=== PATIENT | female | born 1965 | race Caucasian/White ===

== ENCOUNTER 2019-05-06 02:19 | Emergency (ER) | payer OTHER ==
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
[2019-05-06 05:08] VITALS: BP 134/84; TEMP 98.8; O2SAT 99
== END 2019-05-06 03:20 | disposition home or self-care (01) ==
LOC: ER 02:19
DX: S80.02XA Contusion of left knee, initial encounter (principal); V49.9XXA Car occupant (driver) (passenger) injured in unspecified traffic accident, initial encounter; I10 Essential (primary) hypertension; Z72.0 Tobacco use
CPT/HCPCS: 99283

== ENCOUNTER 2021-01-21 15:42 | Emergency (ER) | payer OTHER, SELFPAY ==
--- OUTSIDE RECORDS SUMMARY | 2021-01-21 15:44 | XMS REPORT | Continuity of Care Document ---
:1965 Author Organization [facility] t Address [address] [place] [address] Care Team Providers Name Role Phone Marcello BOWLING Attending Clinician Margarita Vee DO Attending Clinician Haile STEVENS Attending Clinician Doctor Unassigned, Name Attending Clinician Unavailable Problems This patient has no known problems. Allergies, Adverse Reactions, Alerts This patient has no known allergies or adverse reactions. Medications This patient has no known medications. Procedures This patient has no known procedures. Encounters Start End Encounter Admission Attending Care Care Encounter Source Date/Time Date/Time Type Type Clinicians Facility Department ID 2021-01-03 2021-01-03 [facility] [id number] 09:25:00 11:13:00 Wild [place] [id number] [place] [id number] [place] [id number] 2020-12-31 2020-12-31 Emergency Mariusz [facility] [id number] 15:00:00 15:45:00 Emily [place] [id number] [place] [id number] [place] [id number] 2020-03-12 2020-03-12 Emergency Haile [facility] [id number] 11:09:54 15:47:00 Kasey [place] [id number] [place] [id number] [place] [id number] 2020-03-12 2020-03-12 Orders Doctor GEORGIE [id number] 00:00:00 00:00:00 Only Unassigned, [place] [id number] [place] [facility] [id number] Results This patient has no known results.
--- NOTE | 2021-01-21 19:04 | ER ---
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 Reports tenderness with touch. Reports soreness on the area. Denies trouble swallowing. Denies trouble breathing. Coronavirus screen: Client denies travel out of the [place] in the last 14 days. At this time, the client does not indicate any symptoms associated with coronavirus-19. Ebola Screen: Patient negative for fever greater than or equal to 101.5 degrees Fahrenheit, and additional compatible Ebola Virus Disease symptoms Patient denies exposure to infectious person. Patient denies travel to an Ebola-affected area in the 21 days before illness onset. No symptoms or risks identified at this time. Initial Sepsis Screen: Does the patient meet any 2 criteria? No. Patient's initial sepsis screen is negative. Does the patient have a suspected source of infection? No. Patient's initial sepsis screen is negative. Risk Assessment: Do you want to hurt yourself or someone else? Patient reports no desire to harm self or others. Onset of symptoms was January 21, 2021. 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 - Social history:: Smoking status: Patient reports the use of cigarette tobacco products, smokes one-half pack cigarettes per day, Patient uses. Screenin:15 Abuse screen: Denies threats or abuse. Denies injuries from another. Nutritional ss screening: No deficits noted. Tuberculosis screening: Never had TB. Fall Risk None identified. Assessment: 18:15 General: Appears in no apparent distress. comfortable, Behavior is calm, cooperative, ss Denies fever, feeling ill, fatigue, chills. Pain: Complains of pain in right clavicle Pain currently is 3 out of 10 on a pain scale. Neuro: Level of Consciousness is awake, alert, obeys commands, Oriented to person, place, time, situation, Buffer Inflated Pad are weak bilaterally Facial symmetry appears normal. Cardiovascular: Capillary refill < 3 seconds is brisk in bilateral fingers Patient's skin is warm and dry. Respiratory: Airway is patent Respiratory effort is even, unlabored, Respiratory pattern is regular, symmetrical. GI: Patient currently denies abdominal pain, nausea, vomiting. : No signs and/or symptoms were reported regarding the genitourinary system. EENT: Nares are clear Oral mucosa is moist. Derm: Skin is intact, is healthy with good turgor, Skin is dry, Skin is pink, warm \T\ dry. normal. Musculoskeletal: Circulation, motion, and sensation intact. Range of motion: intact in all extremities. Vital Signs: 15:50 BP 175 / 99; Pulse 97; Resp 16 S; Temp 97.2(TE); Pulse Ox 97% on R/A; Weight 105.23 kg ca1 (R); Height 5 ft. 1 in. (154.94 cm) (R); Pain 3/10; 15:50 Body Mass Index 43.84 (105.23 kg, 154.94 cm) ca1 ED Course: 15:48 Patient arrived in ED. as 15:56 Triage completed. ca1 15:57 Arm band placed on right wrist. ca1 18:00 Deon Villa PA is PHCP. jr8 18:01 Kodi Coelho MD is Attending Physician. jr8 18:38 XRAY Chest (1 view) In Process Unspecified. EDMS 19:13 Rowena Thorpe, JOSÉ is Primary Nurse. ss 19:16 Patient has correct armband on for positive identification. Bed in low position. Call ss light in reach. 19:16 No provider procedures requiring assistance completed. Patient did not have IV access ss during this emergency room visit. Administered Medications: No medications were administered Outcome: 19:04 Discharge ordered by . jr8 19:16 Discharged to home ambulatory. ss 19:16 Condition: good 19:16 Discharge instructions given to patient, Instructed on discharge instructions, follow up and referral plans. medication usage, Demonstrated understanding of instructions, follow-up care, medications, Prescriptions given X 1. 19:17 Patient left the ED. ss Signatures: Dispatcher [employer] KARRIETN Rosalind Freedman Shelby, RN RN Deon Villa PA PA jr8 Suzy Tran RN RN ca1
--- NOTE | 2021-01-21 19:04 | EDPHYS ---
Physician Documentation [facility] Name: Marlene Hernandez Age: 55 yrs Sex: Female : 1965 Arrival Date: 01/21/2021 Time: 15:48 Bed 7 Private MD: ED Physician Kodi Coelho HPI: 01/21 18:20 This 55 yrs old Female presents to ER via Ambulatory with complaints of Neck jr8 Swelling. 18:20 Onset: The symptoms/episode began/occurred acutely, today. Associated signs and jr8 symptoms: Pertinent positives: Tenderness. The pain does not radiate. The patient has not experienced similar symptoms in the past. The patient has not recently seen a physician. Patient stated that she was changing after an interview. Stated that her friend noticed swelling to right sternoclavicular region. Patient until touching area had no idea. Stated that it was painful. Denies direct injury but stated that she had recently been moving large sand bags. 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 - Social history:: Smoking status: Patient reports the use of cigarette tobacco products, smokes one-half pack cigarettes per day, Patient uses. ROS: 18:20 Eyes: Negative for injury, pain, redness, and discharge, ENT: Negative for injury, jr8 pain, and discharge, Neck: Negative for injury, pain, and swelling, Cardiovascular: Negative for chest pain, palpitations, and edema, Respiratory: Negative for shortness of breath, cough, wheezing, and pleuritic chest pain, Abdomen/GI: Negative for abdominal pain, nausea, vomiting, diarrhea, and constipation, Back: Negative for injury and pain, MS/Extremity: Negative for injury and deformity, Skin: Negative for injury, rash, and discoloration, Neuro: Negative for headache, weakness, numbness, tingling, and seizure. Exam: 18:20 Head/Face: Normocephalic, atraumatic. Eyes: Pupils equal round and reactive to light, jr8 extra-ocular motions intact. Lids and lashes normal. Conjunctiva and sclera are non-icteric and not injected. Cornea within normal limits. Periorbital areas with no swelling, redness, or edema. ENT: Nares patent. No nasal discharge, no septal abnormalities noted. Tympanic membranes are normal and external auditory canals are clear. Oropharynx with no redness, swelling, or masses, exudates, or evidence of obstruction, uvula midline. Mucous membranes moist. Neck: Trachea midline, no thyromegaly or masses palpated, and no cervical lymphadenopathy. Supple, full range of motion without nuchal rigidity, or vertebral point tenderness. No Meningismus. Cardiovascular: Regular rate and rhythm with a normal S1 and S2. No gallops, murmurs, or rubs. Normal PMI, no JVD. No pulse deficits. Respiratory: Lungs have equal breath sounds bilaterally, clear to auscultation and percussion. No rales, rhonchi or wheezes noted. No increased work of breathing, no retractions or nasal flaring. Abdomen/GI: Soft, non-tender, with normal bowel sounds. No distension or tympany. No guarding or rebound. No evidence of tenderness throughout. Skin: Warm, dry with normal turgor. Normal color with no rashes, no lesions, and no evidence of cellulitis. MS/ Extremity: Pulses equal, no cyanosis. Neurovascular intact. Full, normal range of motion. Neuro: Awake and alert, GCS 15, oriented to person, place, time, and situation. Cranial nerves II-XII grossly intact. Motor strength 5/5 in all extremities. Sensory grossly intact. Cerebellar exam normal. Normal gait. 18:20 Chest/axilla: Inspection: mild swelling noted over the right sternoclavicular junction, Palpation: tenderness, that is mild, of the right clavicle, Axilla: are normal, no abscess, no cellulitis, no mass, no palpable nodes, no rash, Lymph nodes: lymphadenopathy is not appreciated. Vital Signs: 15:50 BP 175 / 99; Pulse 97; Resp 16 S; Temp 97.2(TE); Pulse Ox 97% on R/A; Weight 105.23 kg ca1 (R); Height 5 ft. 1 in. (154.94 cm) (R); Pain 3/10; 15:50 Body Mass Index 43.84 (105.23 kg, 154.94 cm) ca1 MDM: 18:02 Patient medically screened. jr8 19:02 Data reviewed: vital signs, nurses notes, radiologic studies, plain films. Data jr8 interpreted: Pulse oximetry: on room air is 97 %. Interpretation: normal. Counseling: I had a detailed discussion with the patient and/or guardian regarding: the historical points, exam findings, and any diagnostic results supporting the discharge/admit diagnosis, radiology results, the need for outpatient follow up, a family practitioner, to return to the emergency department if symptoms worsen or persist or if there are any questions or concerns that arise at home. ED course: No acute findings on imaging. Most likely inflammatory in nature. Will try NSAIDs and have her f/u with PCP. Patient knows to come back if worse . 01/21 18:12 Order name: XRAY Chest (1 view); Complete Time: 19:12 jr8 Administered Medications: No medications were administered Disposition: 01/21/21 19:04 Discharged to Home. Impression: Sprain of right sternoclavicular joint. - Condition is Stable. - Prescriptions for Ibuprofen 800 mg Oral Tablet - take 1 tablet by ORAL route every 8 hours As needed take with food; 30 tablet. - Medication Reconciliation Form, Thank You Letter, Antibiotic Education, Prescription Opioid Use form. - Follow up: Private Physician; When: 1 week; Reason: Recheck today's complaints, Continuance of care, Re-evaluation by your physician. - Problem is new. - Symptoms have improved. Addendum: 01/24/2021 07:07 Co-signature as Attending Physician, Kodi Coelho MD. r n Signatures: Dispatcher [employer] EDKS Kodi Coelho MD MD rn Smirch, Shelby, RN RN ss Roszak, Josh, PA PA jr8 Suzy Tran RN RN ca1 Corrections: (The following items were deleted from the chart) 01/21 19:17 19:04 01/21/2021 19:04 Discharged to Home. Impression: Sprain of right sternoclavicular ss joint. Condition is Stable. Forms are Medication Reconciliation Form, Thank You Letter, Antibiotic Education, Prescription Opioid Use. Follow up: Private Physician; When: 1 week; Reason: Recheck today's complaints, Continuance of care, Re-evaluation by your physician. Problem is new. Symptoms have improved. jr8
--- NOTE | 2021-01-21 19:11 | RAD REPORT ---
EXAM DESCRIPTION: RAD - Chest Single View - 01/21/2021 6:38 pm CLINICAL HISTORY: sternoclavicular swelling and pain COMPARISON: Single-view chest December 2014 TECHNIQUE: AP portable chest image was obtained 01/21/2021 6:38 pm . FINDINGS: Lung volumes are reduced compared to the prior study. This accentuates the baseline inters titial pattern. No peripheral mass or consolidation. Heart and vasculature are normal. No measurable pleural effusion and no pneumothorax. No acute bony abnormality seen. No acute aortic findings suspec alisa. IMPRESSION: No acute cardiopulmonary process. No significant change from comparison study.
== END 2021-01-21 19:17 | disposition home or self-care (01) ==
LOC: ER 15:42
DX: S43.61XA Sprain of right sternoclavicular joint, initial encounter (principal); I10 Essential (primary) hypertension; F17.210 Nicotine dependence, cigarettes, uncomplicated
CPT/HCPCS: 71045; 99283